=== PATIENT | female | born 1935 | race Caucasian/White ===

== ENCOUNTER 2016-09-13 18:03 | Inpatient (IN) | payer MEDICARE, OTHER ==
[~2016-09-13] VITALS: Ht 154.9 cm; Wt 79.3 kg
[2016-09-13 18:05] VITALS: BP 141/76; PULSE 84; RESP 18; O2SAT 88; O2SAT 89
[2016-09-13 19:00] VITALS: BP_SYST 167; BP_SYST 59; BP_DIAS 59; PULSE 75; RESP 17; O2SAT 99
[2016-09-13 19:23] LABS: BASOPHILS % (AUTO) 0.1 % (0-3); EOSINOPHILS % (AUTO) 0 % (0-5); MONOCYTES % (AUTO) 12.6 % (4-12); Mean Corpuscular Hemoglobin 28.8 pg (27.0-35.0); Mean Corpuscular Volume 90.8 fL (81-100); Platelet Count 431 bil/L (150-400)
[2016-09-13] MEDS ORDERED: cefTRIAXone Inj 2,000 MG in Dextrose 5% Minibag Plus 50 ML IV ONE (19:50)
--- NOTE | 2016-09-13 19:56 | ED.REPORT ---
HPI-Dyspnea / Wheezing Date of Service September 13, 2016 ED Provider: Artie Romeo DO 81 y/o female with a no reported hx presents to the ED complaining of non- productive cough, onset 2 days ago that worsened today. The pt is a [place] resident who is visiting her daughter. She also reports gradual increase in dyspnea. She denies fever and chest pain. Nursing Notes Stated Complaint: COUGH,CONGESTION Chief Complaint: Respiratory Complaints Nursing Notes Reviewed: Yes Allergies: Coded Allergies: Eucalyptus Tree (Verified Allergy, Unknown, Shortness of Breath, 09/13/16) alendronate sodium (Verified Allergy, Unknown, Bone pain, 09/13/16) Scheduled Atenolol (Atenolol) 25 Mg Tablet 25 MG PO DAILY Cyanocobalamin (Vitamin B12) 500 Mcg Tablet 500 MCG PO DAILY Ferrous Gluconate (Ferrous Gluconate) 240 Mg Tablet 240 MG PO HS Hydralazine (Hydralazine) 50 Mg Tablet 50 MG PO BID Levothyroxine (Levothyroxine) 100 Mcg Tablet 100 MCG PO DAILY Lisinopril (Lisinopril) 40 Mg Tablet 40 MG PO DAILY Lovastatin (Lovastatin) 40 Mg Tablet 80 MG PO Evening with meal Multivits-Min/FA/Lycopene/Lut (Centrum Silver Tablet) 1 Each Tablet 1 EACH PO DAILY Oxybutynin Chloride (Oxybutynin Chloride) 5 Mg Tablet 5 MG PO 1-2x daily General Time Seen by MD: 18:49 Chief Complaint Cough Hx Obtained From: Patient Arrived By: Walk-in Sudden in Onset?: Yes Onset Occurred: 3 days ago Symptom Duration: Since onset Severity: Current: No pain currently Severity: Maximum: No pain Recent Healthcare: No recent doctor visit Similar Sx Previous: No Past Medical History Past Medical History none reported Past Surgical History none reported Smoking History Unknown if Ever Smoker Social History Other Social History: Good social support Ambulatory Status Independent Review of Systems Constitutional: Denies: Fever Respiratory: Reports: Non-productive cough, Shortness of breath Cardiovascular: Denies: Chest pain Complete sys rev & neg: except as marked. Physical Exam Initial Vital Signs Vital Signs (First) Date Time Temp Pulse Resp B/P Pulse Ox O2 Delivery O2 Flow Rate FiO2 09/13/16 18:05 36.6 84 18 141/76 88 Room Air 09/13/16 19:00 2 Initial VS: Reviewed ENT: Mucous membranes moist, Conjunctiva normal, No scleral icterus Abdomen / GI: Soft, Non-tender Extremities: Vascular intact, Neuro intact, No swelling, No tenderness Skin: Warm, Dry, No cyanosis Neurologic: Alert, Oriented, Nonfocal General/Constitutional: Awake, Alert, Cooperative Neck: No JVD Respiratory / Chest: Atraumatic, Breath sounds = bilat, No chest tenderness, No chest wall deformity Crackles heard bilaterally, more in left lobe. Pursed lip breathing. Cardiovascular: Heart rate NL, Regular rhythm, Heart sounds NL, No gallop, No murmurs, No rubs No edema Head / Eyes: Atraumatic, Normocephalic Interpretation & Diagnostics Lab Results Interpretation Result Diagram: 09/13/16190409/13/161904 Test 09/13/16 19:05 White Blood Count 13.2th/mm3 (3.8-10.1) Red Blood Count 4.44mil/mm3 (3.90-5.20) Hemoglobin 12.8g/dL (12.0-15.6) Hematocrit 40.3% (35.0-46.0) Mean Corpuscular Volume 90.8fL (81-100) Mean Corpuscular Hemoglobin 28.8pg (27.0-35.0) Mean Corpuscular Hemoglobin Concent 31.8% (32.0-37.0) Red Cell Distribution Width 13.3% (12.3-15.4) Platelet Count 431bil/L (150-400) Neutrophils (%) (Auto) 80.0% (40-74) Lymphocytes (%) (Auto) 7.0% (14-46) Monocytes (%) (Auto) 12.6% (4-12) Eosinophils (%) (Auto) 0% (0-5) Basophils (%) (Auto) 0.1% (0-3) D-Dimer 1.54mg/L FEU (<0.50) Sodium Level 127mEq/L (134-144) Potassium Level 4.0mEq/L (3.5-5.2) Chloride Level 84mEq/L (97-108) Carbon Dioxide Level 31mmol/L (18-29) Blood Urea Nitrogen 17mg/dL (8-27) Creatinine 0.61mg/dL (0.57-1.00) Estimat Glomerular Filtration Rate 135mL/min (>59) Glucose Level 164mg/dL (60-99) Lactic Acid Level 1.2mmol/L (0.4-2.0) Calcium Level 9.2mg/dL (8.5-10.1) Total Bilirubin 0.4mg/dL (0.0-1.2) Aspartate Amino Transf (AST/SGOT) 16U/L (0-50) Alanine Aminotransferase (ALT/SGPT) 10U/L (0-32) Alkaline Phosphatase 62U/L (25-165) Troponin T < 0.010ug/L (0.0-0.011) Pro-B-Type Natriuretic Peptide 303.7pg/mL (0-738) Total Protein 7.6g/dL (6.4-8.4) Albumin 3.2g/dL (3.4-5.0) Procalcitonin 0.10ng/mL (0.00-0.08) Hold Aguila Top Tube Received (Received) ECG Interpretation 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 Superimposed infection particularly in the left lower lobe cannot be excluded. Recommend a followup chest radiograph in 4-6 weeks to verify resolution. Dictated by: Yoseph Cochran M.D. on 09/13/2016 at 20:06 Approved by: Yoseph Cochran M.D. on 09/13/2016 at 20:07 View: Portable, AP & lat Interpretation / Wet Read by: Interpret - Radiologist CT Chest Interpretation IMPRESSION: 1. No acute pulmonary emboli. 2. Infectious appearing pulmonary opacities bilaterally greatest in the left lower lobe. Likely reactive mediastinal lymphadenopathy and pleural effusions left greater than right. Recommend radiographic and clinical follow up to resolution. If findings not resolve, a PET CT may be needed. Dictated by: Yoseph Cochran M.D. on 09/13/2016 at 20:57 Approved by: Yoseph Cochran M.D. on 09/13/2016 at 21:07 Study type: CT pulm angiogram Interpretation / Wet Read by: Interpret - Radiologist Re-Eval/Medical Decision Med Decision/Clinical Course 81 -year-old female presents to the emergency department acutely ill. She has had cough and shortness of breath since she flew from [place]. She was found to be hypoxic and have impressive adventitious breath sounds. Chest x- ray showed a pleural effusion and possible pneumonia as well as evidence of heart failure. Her beta natruretic peptide however was normal. Her d-dimer was quite elevated so therefore a CT angiogram to rule out PE was performed. Pulmonary embolism was ruled out and a pneumonia with an effusion was identified. She meets criteria for community-acquired pneumonia. She will be treated with Rocephin and Zithromax. Plan for hospital admission. She was admitted in stable condition. Re-Evaluation/Progress : Time of Eval: 19:00 Re-Evaluation/Progress Note: Rechecked pt. Discussed lab results and plan to admit. Pt understands and agrees with the plan for admission. All questions addressed. Consultation : Referral / Consult Name: Jeronimo Hankins MD Call Returned at: 21:16 Legal Librarian: Will see patient, Agrees with eval, Agrees with plan, Accepts admit Counseled Regarding: Diagnosis, Lab results, Need for admission Discharge & Departure Impression: Primary Impression: Pneumonia Pneumonia type: due to unspecified organism Laterality: left Lung location : lower lobe of lung Qualified Code: J18.1 - Lobar pneumonia, unspecified organism Additional Impression: Parapneumonic effusion Disposition: ADMITTED TO HOSPITAL Discharge Condition All VS Reviewed: Yes Scribe Attestation Portions of this note were transcribed by Sergio Jade. I, , personally performed the history, physical exam and medical decision-making;I reviewed and confirmed the accuracy of the information in the transcribed note. Signed by Amita Grey. 09/13/16 2157 Artie Romeo DO September 13, 2016 19:56 Sergio Jade September 13, 2016 20:00
[2016-09-13 20:00] LABS: TROPONIN T < 0.010 ug/L (0.0-0.011)
[2016-09-13] MEDS ORDERED: Albuterol-Ipratropium 3 mL Inhalation Solution NEB ONE (20:00)
--- NOTE | 2016-09-13 20:14 | DRSVH ---
PROCEDURE: X-RAY CHEST, TWO VIEWS ([id number]) INDICATIONS: dyspnea TECHNIQUE: 2 views of the chest were acquired. COMPARISON: None. FINDINGS: Surgical changes and devices: None. Lungs and pleura: The small pleural effusions with bibasilar atelectasis or infiltrates. Interstitial pulmonary opacities most consistent with fluid imbalance. Hyperinflation consistent with COPD.. Mediastinum: Mediastinal contours are normal. Heart size is normal. Vascular calcifications. Bones and chest wall: No suspicious bony abnormalities. Soft tissues appear unremarkable. IMPRESSION: Pleural effusions with pulmonary congestion. Superimposed infection particularly in the l eft lower lobe cannot be excluded. Recommend a followup chest radiograph in 4-6 weeks to verify resol ution. Dictated by: Yoseph Cochran M.D. on 09/13/2016 at 20:06 Approved by: Yoseph Cochrna M.D. on 09/13/2016 at 20:07
[2016-09-13 20:22] VITALS: PULSE 72; RESP 20; O2SAT 98
[2016-09-13 21:12] VITALS: BP 137/74; PULSE 83; RESP 18; O2SAT 100
--- NOTE | 2016-09-13 21:14 | DRSVH ---
PROCEDURE: CT ANGIO CHEST PULMONARY EMBOLISM ([id number]) INDICATIONS: pleural effusion, dyspnea,hx of clot TECHNIQUE: After the administration of intravenous contrast, 2 mm thick sections acquired from the pulmonary api melvin to the posterior costophrenic angles. 3-dimensional maximum intensity projection (MIP) coronal a nd sagittal reformats were then acquired through the thorax. For radiation dose reduction, the follo wing was used: automated exposure control, adjustment of mA and/or kV according to patient size. COMPARISON: None. FINDINGS: Image quality: Excellent. Pulmonary arteries: Pulmonary arteries are normal in size, and demonstrate no intraluminal filling d efects to suggest central pulmonary embolism. Lungs and pleura: Small pleural effusions left greater than right to small for percutaneous sampling. Bilateral infectious pulmonary opacities greatest in the left lower lobe. Mediastinum: Moderate pericardial effusion measuring up to 1.4 CM in diameter. Mediastinal lymphadeno paty with largest subcarinal lymph node measuring 2.5 x 1.5 CM.. Bones and chest wall: No suspicious bony lesions. Ribs and thoracic spine appear intact throughout. Thyroid gland is grossly normal.. No axillary or supraclavicular adenopathy. Abdomen: Visualized upper abdominal solid organs appear normal in the early arterial phase of enhanc ement. IMPRESSION: 1. No acute pulmonary emboli. 2. Infectious appearing pulmonary opacities bilaterally greatest in the left lower lobe. Likely react maria guadalupe mediastinal lymphadenopathy and pleural effusions left greater than right. Recommend radiographic and clinical follow up to resolution. If findings not resolve, a PET CT may be needed. Dictated by: Yoseph Cochran M.D. on 09/13/2016 at 20:57 Approved by: Yoseph Cochran M.D. on 09/13/2016 at 21:07
[2016-09-13] MEDS ORDERED: Alum-Mag Hydrox-Simeth 30 mL Suspension PO PRN (21:30)
[2016-09-13] MEDS ORDERED: Polyethylene Glycol (PEG) 17 Gm Powder PO PRN (21:30)
--- NOTE | 2016-09-13 21:45 | PCM.HPMED ---
Subjective Date of Service September 13, 2016 Primary Provider: Admitting Physician: Primary Care Physician: Other,Physician Attending Physician: Admit Status: From the Emergency Department, Remote Telemetry Chief Complaint: Cough and congestion History of Present Illness: Patient is a 81 y/o female with asthma, hypertension and hyperlipidemia seen by urgent care transferred to the ED complaining of worsening non-productive cough , onset 9 days ago. Associated symptoms include cough, dyspnea, headache, nasal congestion and wheezing. Patient states she has not had any appetite for the last week. She denies fever, chest pain, otalgia or sore throat. Patient reports of having pneumonia in May and had lesion on left lung. Patient denies history of dysuria, allergies, sick contacts or exposure to smoke. Patient is currently visiting her daughter from [place]. Denies any recent hospitalizations, or antibiotics use. Patient is not on oxygen at baseline. In the ED vitals T 36.6, P 84, RR 18, BP 141/76, oxygen 88% on RA. Labs significant for WBC 13.2, sodium 127, chloride 84, bicarbonate 31, glucose 164. Pro-calcitonin 0.10. D-dimer is 1.54. Lactic acid 1.2. Troponin negative, BNP in a 303.7. CXR showed "Pleural effusions with pulmonary congestion. Superimposed infection particularly in the left lower lobe cannot be excluded." CTA negative for PE, confirming CXR findings. Review of Systems: A comprehensive review of systems has been conducted with the patient and found to be negative except what is mentioned in the HPI. Allergies Coded Allergies: Eucalyptus Tree (Verified Allergy, Unknown, Shortness of Breath, 09/13/16) alendronate sodium (Verified Allergy, Unknown, Bone pain, 09/13/16) Home Medications Atenolol 25 mg by mouth daily Hydralazine 50 mg by mouth daily Oxybutynin 5 mg by mouth 1-2 tablets a day Levothyroxine 75 g by mouth daily Lisinopril 40 mg by mouth daily Lovastatin 80 mg by mouth daily at bedtime Centrum Silver one a day Vitamin B12 500 g 1 a day ferrous gluconate 240 mg 1 at night PMH Hypertension Hyperlipidemia Urinary incontinence hypothyroidism Surgical History Denies Family History Mother of natural causes in her late 80s. Does not know any health history is regarding her father. Social History Hx Alcohol Use: No Hx Substance Use: No Hx Tobacco Use: Yes Smoking Status: Former Smoker (quit 40 years ago, 25 pack years) Exam Vital Signs Vital Sign - Last Date Time Temp Pulse Resp B/P Pulse Ox O2 Delivery O2 Flow Rate FiO2 09/13/16 21:12 83 18 137/74 100 Nasal Cannula 2 09/13/16 18:05 36.6 Exam General: Alert, Oriented X3, Cooperative, in mild respiratory distress, breathing with pursed lips HEENT: PERRLA, EOMI, No scleral icterus, Conjunctiva normal, Mucous Membrane dry Neck: Supple, no JVD Chest & Lungs: Coarse breath sounds L>R, with expiratory wheezes. Mild respiratory distress Cardiovascular: Regular rate and rhythm Abdomen: Non-tender, Non-distended Extremities: No cyanosis/clubbing bilat, 2+ pitting edema extending up to lower abdomen Skin: Warm, Dry, No cyanosis, poor skin turgor Neurological: no focal deficits Psychiatric: Mood/affect normal, Behavior normal, Normal thought content Lab and Diagnostics Result Diagram: 09/13/16190409/13/161904 X-Rays, CTs and MRIs Date of Service: 09/13/16 1832 PROCEDURE: X-RAY CHEST, TWO VIEWS ([id number]) INDICATIONS: dyspnea IMPRESSION: Pleural effusions with pulmonary congestion. Superimposed infection particularly in the left lower lobe cannot be excluded. Recommend a followup chest radiograph in 4-6 weeks to verify resolution. Dictated by: Yoseph Cochran M.D. on 09/13/2016 at 20:06 Approved by: Yosehp Cochran M.D. on 09/13/2016 at 20:07 Date of Service: 09/13/162034 PROCEDURE: CT ANGIO CHEST PULMONARY EMBOLISM ([id number]) INDICATIONS: pleural effusion, dyspnea,hx of clot IMPRESSION: 1. No acute pulmonary emboli. 2. Infectious appearing pulmonary opacities bilaterally greatest in the left lower lobe. Likely reactive mediastinal lymphadenopathy and pleural effusions left greater than right. Recommend radiographic and clinical follow up to resolution. If findings not resolve, a PET CT may be needed. Dictated by: Yoseph Cochran M.D. on 09/13/2016 at 20:57 Approved by: Yoseph Cochran M.D. on 09/13/2016 at 21:07 Assessment & Plan Patient is a 81 y/o female with asthma, hypertension and hyperlipidemia seen by transferred to the ED complaining of worsening non-productive cough, onset 9 days ago. Associated symptoms include cough, dyspnea, headache, nasal congestion and wheezing. CXR and CT confirms pneumonia. Patient admitted for further treatment and management. Hypoxic respiratory Failure due to pneumonia, present on admission. Acute. - keep oxygen saturations above 92% - Oxygen as needed Community-acquired pneumonia, present on admission. Acute. - CXR showed "Pleural effusions with pulmonary congestion. Superimposed infection particularly in the left lower lobe cannot be excluded." CTA negative for PE, confirming CXR findings. - CURB 65 of 1 - Procal mildly elevated at 0.10, with leukocytosis - Started on ceftriaxone and ED, will continue and add azithromycin - Urine Legionella and strep, PCR viral panel pending - Sputum cultures, UCx, BCx pending Hyponatremia, present on admission. Acute. - most likely due to poor oral intake for the past week, cannot rule out SIADH from pneumonia - IVF - patient to be on general diet to promote oral intake - Recheck labs Chronic conditions; Hypertension - continue home meds atenolol. Lisinopril, hydralazine Hypothyroidism - continue home med levothyroxine Hyperlipidemia - continue home med lovastatin Urinary incontinence - continue oxybutynin Acetaminophen-fever/headache/mild/moderate pain Antiemetics, as needed Bowel regimen, as needed. Patient status: Patient was admitted under inpatient status with expected length of stay greater than two midnights due to severity of presenting symptoms , risk of adverse event, and complexity of treatment plan. Pain Evaluation: Adequate Pain Control GI Prophylaxis: Not indicated VTE Prophylaxis: Sub-Q Enoxaparin Resuscitation Status: CPR: Attempt Resuscitation Attending Statement The patient was seen and examined together with Dr. Kasper on 09/13 and I agree with the history, exam and plan as outlined in the note above. Devon Kasper DO September 13, 2016 21:45 Jeronimo Hankins MD September 14, 2016 01:06
[2016-09-13 22:18] LABS: APPEARANCE,URINE CLEAR (CLEAR,HAZY); COLOR,URINE YELLOW (YELLOW); OCCULT BLOOD,URINE NEGATIVE (NEGATIVE); UROBILINOGEN,URINE NORMAL (NORMAL)
[2016-09-13 22:45] VITALS: BP 178/91; PULSE 86; RESP 20; O2SAT 95
[2016-09-13] MEDS ORDERED: HYDR-3940 PO (22:45)
[2016-09-13] MEDS ORDERED: FERR240T5 PO (22:45)
[2016-09-13] MEDS ORDERED: ATEN25TA PO (22:45)
[2016-09-13] MEDS ORDERED: CYAN500 PO (22:45)
[2016-09-13] MEDS ORDERED: LOVA40TA PO (22:45)
[2016-09-13] MEDS ORDERED: LISI40TA PO (22:45)
[2016-09-13] MEDS ORDERED: LEVO100T6 PO (22:45)
[2016-09-13] MEDS ORDERED: OXYB5TAB10 PO (22:45)
[2016-09-13] MEDS ORDERED: MULT-1073 PO (22:45)
[2016-09-13] MEDS: Azithromycin Inj 500 MG in Dextrose 5% w/Vial Mate 250 ML IV SCH (22:55)
[2016-09-13] MEDS: 0.9% Sodium Chloride 1,000 ML IV SCH (22:55)
[2016-09-13 23:14] VITALS: PULSE 84
[2016-09-13] MEDS ORDERED: LEVO75TA4 PO (23:32)
[2016-09-14] VITALS (7 sets, daily range): BP systolic 126–163; BP diastolic 67–82; PULSE 66–83; RESP 15–20; O2SAT 93–98
--- NOTE | 2016-09-14 00:40 | NUR ---
ADMIT/ARRIVAL TO FLOOR Pt arrived to [facility] 3006 approx 2230. Noc resident in to see pt upon arrival to room. Pt able to ambulate from stretcher to bed, slow, slightly unsteady, generalized weakness. VS obtained. Pt on 2L, placed on CPOx. Pt placed on remote telemetry, phototypesetting equipment monitor notified. Pt placed on droplet precautions per MD orders. Nasal MRSA screen swab, Eye drainage swab, and Viral PCR swab obtained and sent to lab. IV patent, flushed, IVF and IV abx administered. Pt denies any pain. Continue to monitor. Call light in reach. Bed alarm on. Intentional rounding.
[2016-09-14] MEDS ORDERED: Ondansetron 2 mg/mL 2 mL Inj IVPUSH PRN (01:25)
--- NOTE | 2016-09-14 04:18 | NUR ---
PT ACTIVITY/OXYGEN NEEDS Pt has mostly remained in bed. Pt did get up to use BSC. Pt visibly dyspneic, oxygen saturations high 70s to low 80s w/ activity. Pt has remained on 2L. Pt able to recover, oxygen saturations back to low to mid 90s on 2L after a few minutes of being back in bed. Call light in reach. Bed alarm on. Intentional rounding.
[2016-09-14 05:50] LABS: BASOPHILS % (AUTO) 0.1 % (0-3); EOSINOPHILS % (AUTO) 0 % (0-5); MONOCYTES % (AUTO) 12.1 % (4-12); Mean Corpuscular Hemoglobin 29.5 pg (27.0-35.0); Mean Corpuscular Volume 91.2 fL (81-100); NEUTROPHILS % (AUTO) 80.4 % (40-74); Platelet Count 419 bil/L (150-400)
[2016-09-14] MEDS: Lisinopril 40 Tablet PO SCH (08:39)
[2016-09-14] MEDS: guaiFENesin 600 mg ER12 Tablet PO SCH ×2 (08:39→20:36)
[2016-09-14] MEDS: 0.9% Sodium Chloride 1,000 ML IV SCH ×3 (08:45→17:48)
[2016-09-14] MEDS ORDERED: Albuterol 2.5 mg/3 mL Inhalation Solution NEB PRN (11:25)
--- NOTE | 2016-09-14 15:40 | PCM.PNMED ---
Subjective Date of Service September 14, 2016 Subjective Denies any new issues/complaints. Continues to have cough and SOB Exam Vital Signs Vital Sign - Last Date Time Temp Pulse Resp B/P Pulse Ox O2 Delivery O2 Flow Rate FiO2 09/14/16 15:13 Supplement Oxygen 09/14/16 13:11 36.8 67 20 126/73 93 2.00 Intake and Output 09/13/16 09/13/16 09/14/16 Cumulative From/Thru 15:00 23:00 07:00 09/13/16 18:05 - 09/14/16 06:37 Intake Total 1083 ml 1083 ml Output Total 260 ml 260 ml Balance 823 ml 823 ml Intake Oral 350 ml 350 ml IV Total 733 ml 733 ml Output Urine Total 260 ml 260 ml General: Alert, Cooperative, No Acute Distress Head: Normal Eyes: Scleral Anicteric Nose: Mucous Membr Moist/[employer] Mouth: Mucous Membr Moist/[employer] Neck: Supple Chest & Lungs: Chest Wall Normal, Coarse breath sounds (upper resp. bilat) Cardiovascular: Regular Rate/Rhythm Abdomen: Non-tender, Non-distended, Normoactive bowel tones, Soft Extremities: No cyanosis/clubbing/edma bilat Neurological: Grossly Neurologically Intact, Normal Speech IVs and Medications Medications Reviewed: Medications were reviewed in detail Lab and Diagnostics Result Diagram: 09/14/1651909/14/16519 X-Rays, CTs and MRIs Date of Service: 09/13/16 183 PROCEDURE: X-RAY CHEST, TWO VIEWS ([id number]) INDICATIONS: dyspnea IMPRESSION: Pleural effusions with pulmonary congestion. Superimposed infection particularly in the left lower lobe cannot be excluded. Recommend a followup chest radiograph in 4-6 weeks to verify resolution. Dictated by: Yoseph Cochran M.D. on 09/13/2016 at 20:06 Approved by: Yoseph Cochran M.D. on 09/13/2016 at 20:07 Date of Service: 09/13/162034 PROCEDURE: CT ANGIO CHEST PULMONARY EMBOLISM ([id number]) INDICATIONS: pleural effusion, dyspnea,hx of clot IMPRESSION: 1. No acute pulmonary emboli. 2. Infectious appearing pulmonary opacities bilaterally greatest in the left lower lobe. Likely reactive mediastinal lymphadenopathy and pleural effusions left greater than right. Recommend radiographic and clinical follow up to resolution. If findings not resolve, a PET CT may be needed. Dictated by: Yoseph Cochran M.D. on 09/13/2016 at 20:57 Approved by: Yoseph Cochran M.D. on 09/13/2016 at 21:07 Assessment & Plan 81 y/o female with asthma, hypertension and hyperlipidemia seen by transferred to the ED complaining of worsening non-productive cough, onset 9 days ago. Associated symptoms include cough, dyspnea, headache, nasal congestion and wheezing. CXR and CT confirms pneumonia. Patient admitted for further treatment and management. # Acute hypoxic respiratory Failure due to pneumonia, present on admission. - keep oxygen saturations above 92% - Oxygen as needed # Acute community-acquired pneumonia, present on admission. ongoing - CXR showed "Pleural effusions with pulmonary congestion. Superimposed infection particularly in the left lower lobe cannot be excluded." CTA negative for PE, confirming CXR findings. - Procal mildly elevated at 0.10, with leukocytosis - Continue with Ceftriaxone and Azithromycin - Urine Legionella and strep, PCR viral negative - Sputum cultures, UCx, BCx pending # Acute Hyponatremia, present on admission. Improving - Most likely due to poor oral intake for the past week - IVF - Followup repeat labs # Chronic Hypertension. stable - continue home meds atenolol. Lisinopril, hydralazine # Hypothyroidism - continue home med levothyroxine # Hyperlipidemia - continue home med lovastatin # Urinary incontinence - continue oxybutynin # CTA on 09/13: " mediastinal lymphadenopathy and pleural effusions left greater than right. Recommend radiographic and clinical follow up to resolution. If findings not resolve, a PET CT may be needed" Dispo: 1-2 days GI Prophylaxis: Not indicated VTE Prophylaxis: Sub-Q Enoxaparin Resuscitation Status: CPR: Attempt Resuscitation Mitchlel Mueller September 14, 2016 15:40
--- NOTE | 2016-09-14 16:03 | NUR ---
BG/Activity pt's BG at lunch was 186. No orders for insulin at this time. MD made aware, pt now on low dose insulin scale. Pt able to transfer from bed to BSC with SBA. Steady gait. stating just slightly SOB, SpO2 low to mid 90s on 2L NC. Reminded pt to use call light before getting out of bed. Pt verbalized understanding. Daughter in room helping with care. Ongoing care.
[2016-09-14] MEDS ORDERED: Insulin Human REGular 300 Unit/3 mL Inj SUBQ SCH (17:00)
[2016-09-14] MEDS: Insulin LISPRO Low-Dose Scale SUBQ SCH ×2 (17:40→21:59)
[2016-09-14] MEDS: cefTRIAXone Inj 2,000 MG in Dextrose 5% Minibag Plus 50 ML IV SCH (20:33)
[2016-09-14] MEDS: Azithromycin Inj 500 MG in Dextrose 5% w/Vial Mate 250 ML IV SCH (22:17)
[2016-09-15] VITALS (7 sets, daily range): BP systolic 123–157; BP diastolic 68–81; PULSE 65–82; RESP 13–18; O2SAT 93–98
[2016-09-15] MEDS: 0.9% Sodium Chloride 1,000 ML IV SCH ×2 (02:21→18:35)
[2016-09-15 06:22] LABS: BASOPHILS % (AUTO) 0.1 % (0-3); EOSINOPHILS % (AUTO) 0.1 % (0-5); MONOCYTES % (AUTO) 13.7 % (4-12); Mean Corpuscular Hemoglobin 29.1 pg (27.0-35.0); Mean Corpuscular Volume 88.2 fL (81-100); NEUTROPHILS % (AUTO) 74.7 % (40-74); Platelet Count 432 bil/L (150-400)
[2016-09-15] MEDS: Insulin LISPRO Low-Dose Scale SUBQ SCH ×4 (08:00→23:16)
[2016-09-15] MEDS: guaiFENesin 600 mg ER12 Tablet PO SCH ×2 (08:47→20:39)
[2016-09-15] MEDS: Lisinopril 40 Tablet PO SCH (08:47)
--- NOTE | 2016-09-15 14:10 | NUR ---
Social Work: Initial Assessment Data: Pt is an 81 y/o female admitted for pneumonia with effusion and hypoxia. Pt's PCP is not listed, pt's insurance is [employer]. EMR reviewed. Readmit score is 2, low. SOFTWARE SYSTEMS ENGINEER met with pt and daughter at bedside, role explained. Pt states that she lives in [place] with her son but is currently visiting her daughter her in [facility]. Pt states her home is single story, she occasionally uses a FWW. Pt states she drives, has no hx of HH or SNF, no LTC or VA benefits. Pt reports she has not been up much during her stay and states she feels very weak. SOFTWARE SYSTEMS ENGINEER spoke with pt's RN who confirms pt has not been up. SOFTWARE SYSTEMS ENGINEER relayed this message to MD who states he will order PT to meet with pt. SOFTWARE SYSTEMS ENGINEER will continue to follow for possible d/c needs. Assessment: Pt who is independent at baseline. Plan: Pt will d/c home via POV with daughter when medically stable. PT to evaluate pt, per MD conversation. SOFTWARE SYSTEMS ENGINEER will follow up post PT evaluation to cony d/c plan with MD and pt. KAREN Rodrigues Addendum: 09/15/16 at 1414 by FABIOLA HOUSE Amended: Links added.
--- NOTE | 2016-09-15 14:26 | PCM.PNMED ---
Subjective Date of Service September 15, 2016 Subjective Denies any new issues/complaints. Continues to have cough and SOB but says feels better than yesterday. Exam Vital Signs Vital Sign - Last Date Time Temp Pulse Resp B/P Pulse Ox O2 Delivery O2 Flow Rate FiO2 09/15/16 12:47 36.8 65 16 137/77 98 Nasal Cannula 3.00 Intake and Output 09/14/16 09/14/16 09/15/16 Cumulative From/Thru 15:00 23:00 07:00 09/13/16 18:05 - 09/15/16 06:11 Intake Total 910 ml 1362 ml 3355 ml Output Total 200 ml 550 ml 1010 ml Balance 710 ml 812 ml 2345 ml Intake Oral 200 ml 200 ml 750 ml IV Total 710 ml 1162 ml 2605 ml Output Urine Total 200 ml 550 ml 1010 ml # Voids 3 3 6 # Bowel Movements 1 1 Exam General: Alert, Cooperative, No Acute Distress Head: Normal Eyes: Scleral Anicteric Nose: Mucous Membr Moist/Bent Mouth: Mucous Membr Moist/Bent Neck: Supple Chest & Lungs: Chest Wall Normal, Coarse breath sounds (mild, upper resp. bilat ) Cardiovascular: Regular Rate/Rhythm Abdomen: Non-tender, Non-distended, Normoactive bowel tones, Soft Extremities: No cyanosis/clubbing/edema bilat Neurological: Grossly Neurologically Intact, Normal Speech IVs and Medications Medications Reviewed: Medications were reviewed in detail Lab and Diagnostics Result Diagram: 09/15/1645 09/15/1645 X-Rays, CTs and MRIs Date of Service: 09/13/16 183 PROCEDURE: X-RAY CHEST, TWO VIEWS ([id number]) INDICATIONS: dyspnea IMPRESSION: Pleural effusions with pulmonary congestion. Superimposed infection particularly in the left lower lobe cannot be excluded. Recommend a followup chest radiograph in 4-6 weeks to verify resolution. Dictated by: Yoseph Cochran M.D. on 09/13/2016 at 20:06 Approved by: Yoseph Cochran M.D. on 09/13/2016 at 20:07 Date of Service: 09/13/162034 PROCEDURE: CT ANGIO CHEST PULMONARY EMBOLISM ([id number]) INDICATIONS: pleural effusion, dyspnea,hx of clot IMPRESSION: 1. No acute pulmonary emboli. 2. Infectious appearing pulmonary opacities bilaterally greatest in the left lower lobe. Likely reactive mediastinal lymphadenopathy and pleural effusions left greater than right. Recommend radiographic and clinical follow up to resolution. If findings not resolve, a PET CT may be needed. Dictated by: Yoseph Cochran M.D. on 09/13/2016 at 20:57 Approved by: Yoseph Cochran M.D. on 09/13/2016 at 21:07 Assessment & Plan 81 y/o female with asthma, hypertension and hyperlipidemia seen by transferred to the ED complaining of worsening non-productive cough, onset 9 days ago. Associated symptoms include cough, dyspnea, headache, nasal congestion and wheezing. CXR and CT confirms pneumonia. Patient admitted for further treatment and management. # Acute hypoxic respiratory failure suspected due to pneumonia, present on admission. - keep oxygen saturations above 92% - Oxygen as needed # Acute community-acquired pneumonia, present on admission. ongoing - CXR showed "Pleural effusions with pulmonary congestion. Superimposed infection particularly in the left lower lobe cannot be excluded." CTA negative for PE, confirming CXR findings. - Procal mildly elevated at 0.10, with leukocytosis - Continue with Ceftriaxone and Azithromycin - Urine Legionella and strep, PCR viral negative - Sputum cultures, UCx, BCx pending - Pulmonology consulted today for further recs. Reviewed CXR and CT with pulmonology. Will followup with further recs. # Acute Hyponatremia, present on admission. Improving - Suspected likely due to poor oral intake for the past week although SIADH also possible - Continue with IVF for now - Followup repeat labs # Chronic Hypertension. stable - continue home meds atenolol. Lisinopril, hydralazine # Hypothyroidism - continue home med levothyroxine # Hyperlipidemia - continue home med lovastatin # Urinary incontinence - continue oxybutynin # CTA on 09/13: " mediastinal lymphadenopathy and pleural effusions left greater than right. Recommend radiographic and clinical follow up to resolution. If findings not resolve, a PET CT may be needed" Dispo: 1-2 days GI Prophylaxis: Not indicated VTE Prophylaxis: Sub-Q Enoxaparin Resuscitation Status: CPR: Attempt Resuscitation Mitchell Mueller September 15, 2016 14:26
[2016-09-15] MEDS: MethylprednisoLONE Sodium Succinate 40 mg/mL Inj IVPUSH SCH (20:39)
[2016-09-15] MEDS: cefTRIAXone Inj 2,000 MG in Dextrose 5% Minibag Plus 50 ML IV SCH (20:40)
[2016-09-15] MEDS: Albuterol 2.5 mg/3 mL Inhalation Solution NEB SCH (20:53)
--- NOTE | 2016-09-15 22:05 | CONS ---
[address] [address] CONSULTATION REPORT PATIENT: TORSTEN PEREZ : 1935 MR#: [id number] ADMIT: 09/13/2016 JOB ID: [id number] PULMONARY AND CRITICAL CARE CONSULTATION: DATE OF SERVICE: 09/15/2016 REQUESTING CLINICIAN: Hospitalist Service. REASON FOR CONSULTATION: Hypoxemia and abnormal chest imaging. HISTORY OF ILLNESS: The patient is a very delightful 81-year-old former smoker with a history of multiple episodes of "pneumonia" occurring over the preceding four years. She is in our area visiting her adult daughter. She arrived one week ago with a cough and dyspnea and was brought to the hospital yesterday and was admitted by the hospitalist service when she was found to be hypoxemic on room air. Chest imaging revealed patchy infiltrates in both lungs and she was treated for presumed community-acquired pneumonia. Since admission, her history of multiple previous episodes has been uncovered and other laboratory studies, including procalcitonin level, have returned and are not consistent with an acute bacterial infection. Pulmonary and Critical Care consultation is now requested for evaluation and management. She is a former smoker with a 20-pack year history, quitting 40 years ago. 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 She continues to work five days a week, four hours each day. As part of her employment, she has regular screening for tuberculosis and does not recall ever being told that she had a positive skin test. She has no pets and has lived in the same home for approximately the last 15 years. Her daughter, who is in the room at the time of my visit, feels that mother has lost some unspecified amount of weight over the last year and a half. Her only travel has been to the [facility] and the [facility], although she normally lives in the [facility]. She denies any known exposures/contact to patients with tuberculosis. She denies fevers, rigors, chills or sweats. She has a cough, which appears almost certainly to be productive, although she insists that she has a phobia about expectoration and swallows all of her secretions. She denies any chest discomfort, new rash, arthralgias. She has occasional episodes of cough while eating and drinking. She has had audible wheezing off and on over the last several years. Her most recent diagnosis of pneumonia was in May of this year, when she was back home in the [place] area. She had a chest x-ray at the time which reportedly showed a pneumonia. All of the previous episodes have been treated as an outpatient with oral medications. We have none of those records currently available. PAST MEDICAL HISTORY: 1. "Asthma." 2. Hypertension. 3. Hyperlipidemia. 4. Stress incontinence. 5. Hypothyroidism. HOME MEDICATIONS: 1. Albuterol metered dose inhaler 2 puffs q.4 h. p.r.n. 2. Hydralazine 50 mg p.o. daily. 3. Oxybutynin 5 mg p.o. daily. 4. Levothyroxine 75 mcg p.o. daily. 5. Lisinopril 40 mg p.o. daily. 6. Lovastatin 80 mg p.o. at h.s. 7. Centrum Silver 1 daily. 8. Vitamin B12 500 mcg daily. 9. Ferrous gluconate 240 mg p.o. daily. DRUG ALLERGIES: Include: 1. EUCALYPTUS OIL causes bronchospasm. 2. ALENDRONATE SODIUM causes an unknown reaction. CURRENT INPATIENT MEDICATIONS: Include: 1. Azithromycin 500 mg IV daily. 2. Rocephin 2 g IV daily. 3. Atenolol 25 mg p.o. daily. 4. Atorvastatin 20 mg p.o. at h.s. 5. Enoxaparin 40 mg subcu daily. 6. Insulin lisinopril sliding scale. 7. Levothyroxine 75 mg p.o. daily. 8. Lisinopril 40 mg p.o. daily. 9. Oxybutynin 5 mg p.o. daily. 10. Hydralazine 50 mg p.o. b.i.d. As-needed medications include: 1. Zofran. 2. Polyethylene glycol powder. 3. Senokot. 4. Guaifenesin. 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 She is a former smoker. She is . She is in our area visiting her adult daughter. She denies regular use of alcohol or recreational drugs. FAMILY HISTORY: Unknown regarding her father. Mother of heart disease in her 80s. PHYSICAL EXAMINATION: This is a somewhat frail, but comfortable-appearing woman who speaks in short sentences with a harsh cough. She is wearing nasal cannula oxygen with an O2 saturation of 98% on 3 L/minute. Her blood pressure is 140/70, heart rate is 76 and regular, respirations are 17. She is and has been afebrile since admission with a current temperature of 37.0. HEENT: Head appear to be normocephalic and atraumatic. Gaze is conjugate. Conjunctivae not injected. Pupils are equal and round. Sclerae anicteric. Visible oral mucosa is moist, without ulceration or exudate. The trachea is midline. Thyroid is nonpalpable. No lymphadenopathy in the neck or supraclavicular region. That chest shows scattered wheeze and rhonchi in all benitez, particularly over the right upper lung and left base. Cardiac exam shows a regular rhythm with normal S1 and S2. No murmur, gallop or rub is heard. Extremities are free of cyanosis, clubbing, pathologic nail change or evidence of synovitis. Skin is without any evidence of petechiae, purpura, rash or ulceration. Lower extremities show only trace bilateral edema. Abdomen is soft, nontender. Bowel tones are present. There is no organomegaly, mass or tenderness. DATABASE: Per the electronic medical record. Chest CT scan is personally reviewed. This was a CT pulmonary angiogram protocol. There is no evidence for pulmonary embolism. She has patchy airspace disease in the superior segment of the right lower lobe, the posterior segment of her left lower lobe and the basal portion of her left upper lobe. She has reactive lymphadenopathy, none greater than 1 cm, in the mediastinum and left hilum. She has bilateral pleural effusions, left slightly greater than right. CBC shows a hemoglobin of 11.6, hematocrit of 35, WBC of 11 and 432,000 platelets. Chemistry show a sodium of 128, potassium 4.4, chloride of 88, total CO2 of 30, BUN of 11, creatinine 0.4, random glucose of 128. Hemoglobin A1c is 6.4. Total calcium is 8.6. Procalcitonin level is 0.10. Respiratory viral PCR on nasopharyngeal aspirate is negative for all species. Strep pneumoniae urinary antigen is negative, along with two blood cultures drawn on September 13. IMPRESSION: Cough, hypoxemia and patchy bilateral pulmonary infiltrates. The puzzling features here are the bilateral nature of her infiltrates and her report of six previous episodes over the last four years. Infiltrates are not of a pattern that I would typically associate with aspiration and, while aspiration can explain a large number of recurrent "pneumonia" in the elderly, I do not believe that that is the case necessarily in this situation. The infiltrates certainly do appear inflammatory and I think we should consider other somewhat atypical organisms, including perhaps the rapid growing mycobacteria such as Mycobacterium avium intracellulare, given her age and gender, which places her at risk. Drug-induced lung disease is a possibility given her long use of hydralazine and its strong association with drug-induced autoantibodies. An LAZ panel should be sent for antihistone and double-stranded DNA antibodies. Neoplastic considerations in this setting include bronchoalveolar cell carcinoma and pulmonary lymphoma, although one would have to explained multiple synchronous lesions in both lungs and I think that makes neoplastic disease unlikely. Finally, some underlying immunodeficiency should be excluded. This is less common in the elderly, but in her case, I think it is worthwhile at least getting quantitative immunoglobulins and considering an HIV screen. The patient has evidence for bronchospasm on exam with widespread wheezing and carries a diagnosis of "asthma." I would treat her with routine measures for an exacerbation of chronic obstructive lung disease with scheduled bronchodilators and systemic corticosteroids, in addition to the empiric antibiotics that you have begun. RECOMMENDATIONS: 1. Expectorated sputum for AFB stain and culture. 2. Urine for Legionella antigen. 3. Continue current azithromycin and Rocephin. 4. Add methylprednisolone 40 mg IV q.8 h. 5. Scheduled inhaled bronchodilators, albuterol/ipratropium. 6. LAZ panel with reflex. 7. Attempt to obtain copies of other imaging from previous episodes back in [place]. 8. Routine PTE prophylaxis while hospitalized and immobile. Thank for requesting Pulmonary and Critical Care consultation. We will continue to follow this complex, seriously ill woman while she remains inpatient. OLEG
[2016-09-15] MEDS: Azithromycin Inj 500 MG in Dextrose 5% w/Vial Mate 250 ML IV SCH (23:17)
[2016-09-16] VITALS (11 sets, daily range): BP systolic 146–198; BP diastolic 78–90; PULSE 72–98; RESP 14–22; O2SAT 93–98
[2016-09-16] MEDS: Albuterol 2.5 mg/3 mL Inhalation Solution NEB SCH ×3 (03:15→12:58)
[2016-09-16] MEDS: MethylprednisoLONE Sodium Succinate 40 mg/mL Inj IVPUSH SCH ×2 (03:44→12:13)
--- NOTE | 2016-09-16 05:03 | NUR ---
Oxygenation/Activity pt on 2L O2 via NC with CPOX. SPO2 94-97%. report little SOB with exertion. pt up to the BSC frequently with SBA . Denies Pain/N/V. ABX administered per order. will continue to monitor.
[2016-09-16 06:12] LABS: Mean Corpuscular Hemoglobin 29.4 pg (27.0-35.0)
[2016-09-16] MEDS: Insulin LISPRO Low-Dose Scale SUBQ SCH ×4 (08:02→21:47)
[2016-09-16] MEDS: guaiFENesin 600 mg ER12 Tablet PO SCH ×2 (08:04→21:28)
[2016-09-16] MEDS: 0.9% Sodium Chloride 1,000 ML IV SCH ×2 (08:05→20:18)
[2016-09-16] MEDS: Lisinopril 40 Tablet PO SCH (09:11)
--- NOTE | 2016-09-16 11:21 | NUR ---
BP note Patient's blood pressure was 198/83 at 0830. Patient denied headache. Administered cardiac medications per order. Instructed to use call light for assistance, in case of BP drop and to report lightheadedness. Rechecked post medication, BP decreased to 160/90 at 1000.
--- NOTE | 2016-09-16 13:29 | PCM.PNMED ---
Subjective Date of Service September 16, 2016 Subjective Denies any new issues/complaints. Continues to have cough and SOB but says continues to feel better Exam Vital Signs Vital Sign - Last Date Time Temp Pulse Resp B/P Pulse Ox O2 Delivery O2 Flow Rate FiO2 09/16/16 12:58 75 96 Nasal Cannula 1.50 09/16/16 12:55 36.4 16 160/82 Intake and Output 09/15/16 09/15/16 09/16/16 Cumulative From/Thru 15:00 23:00 07:00 09/13/16 18:05 - 09/16/16 06:29 Intake Total 1367 ml 400 ml 5122 ml Output Total 1000 ml 7300 ml 9310 ml Balance 367 ml -6900 ml -4188 ml Intake Oral 686 ml 400 ml 1836 ml IV Total 681 ml 3286 ml Output Urine Total 650 ml 7300 ml 8960 ml Urine/Stool Mix 350 ml 350 ml # Voids 6 # Bowel Movements 1 2 Exam General: Alert, Cooperative, No Acute Distress Head: Normal Eyes: Scleral Anicteric Nose: Mucous Membr Moist/[place] Mouth: Mucous Membr Moist/[place] Neck: Supple Chest & Lungs: Chest Wall Normal, Coarse breath sounds (mild, upper resp. bilat ) Cardiovascular: Regular Rate/Rhythm Abdomen: Non-tender, Non-distended, Normoactive bowel tones, Soft Extremities: No cyanosis/clubbing/edema bilat Neurological: Grossly Neurologically Intact, Normal Speech IVs and Medications Medications Reviewed: Medications were reviewed in detail Lab and Diagnostics Result Diagram: 09/16/16 0600 09/16/16 06 X-Rays, CTs and MRIs Date of Service: 09/13/161831 PROCEDURE: X-RAY CHEST, TWO VIEWS ([id number]) INDICATIONS: dyspnea IMPRESSION: Pleural effusions with pulmonary congestion. Superimposed infection particularly in the left lower lobe cannot be excluded. Recommend a followup chest radiograph in 4-6 weeks to verify resolution. Dictated by: Yoseph Cochran M.D. on 09/13/2016 at 20:06 Approved by: Yoseph Cochran M.D. on 09/13/2016 at 20:07 Date of Service: 09/13/162034 PROCEDURE: CT ANGIO CHEST PULMONARY EMBOLISM ([id number]) INDICATIONS: pleural effusion, dyspnea,hx of clot IMPRESSION: 1. No acute pulmonary emboli. 2. Infectious appearing pulmonary opacities bilaterally greatest in the left lower lobe. Likely reactive mediastinal lymphadenopathy and pleural effusions left greater than right. Recommend radiographic and clinical follow up to resolution. If findings not resolve, a PET CT may be needed. Dictated by: Yoseph Cochran M.D. on 09/13/2016 at 20:57 Approved by: Yoseph Cochran M.D. on 09/13/2016 at 21:07 Assessment & Plan 81 y/o female with asthma, hypertension and hyperlipidemia seen by transferred to the ED complaining of worsening non-productive cough, onset 9 days ago. Associated symptoms include cough, dyspnea, headache, nasal congestion and wheezing. CXR and CT confirms pneumonia. Patient admitted for further treatment and management. # Acute hypoxic respiratory failure suspected due to pneumonia, present on admission. Improving - keep oxygen saturations above 92% - Oxygen as needed - Apprecaite pulmonary consult. López followup with recs. - Possible underlying COPD and possible acute exacerbation - Continue with IV Solu-Medrol per pulmonology recs - Continue wit inhalers - Followup pending serologies and cultures # Acute community-acquired pneumonia, present on admission. ongoing - CXR showed "Pleural effusions with pulmonary congestion. Superimposed infection particularly in the left lower lobe cannot be excluded." CTA negative for PE, confirming CXR findings. - Continue with Ceftriaxone and Azithromycin (day 4) - Urine Legionella and strep, PCR viral negative - Followup pending cultures # Acute Hyponatremia, present on admission. Improving - Suspected likely due to poor oral intake for the past week although SIADH also possible - Continue with IVF for now - Followup repeat labs # Chronic Hypertension. stable - continue home meds atenolol. Lisinopril, hydralazine # Hypothyroidism - continue home med levothyroxine # Hyperlipidemia - continue home med lovastatin # Urinary incontinence - continue oxybutynin # CTA on 09/13: " mediastinal lymphadenopathy and pleural effusions left greater than right. Recommend radiographic and clinical follow up to resolution. If findings not resolve, a PET CT may be needed" Dispo: 2-3 days GI Prophylaxis: Not indicated VTE Prophylaxis: Sub-Q Enoxaparin Resuscitation Status: CPR: Attempt Resuscitation Mitchell Mueller September 16, 2016 13:29
--- NOTE | 2016-09-16 14:57 | PCM.PNMED ---
Subjective Date of Service September 16, 2016 Subjective PULMONOLOGY PROGRESS NOTE: Today, the patient reports she is feeling better. She has been up with PT and spent her morning in the chair. She is tired from the activity and requests a nap. Her cough and shortness of breath are improved. She denies fever, chills , nausea, vomiting. Her appetite seems improved to her. Overnight, patient tolerated 2L via nasal cannula. Does continue to have some dyspnea on exertion. Relatively uneventful night. Exam Vital Signs Vital Sign - Last Date Time Temp Pulse Resp B/P Pulse Ox O2 Delivery O2 Flow Rate FiO2 09/16/16 10:09 89 160/90 09/16/16 08:34 36.7 18 94 Nasal Cannula 3.00 Intake and Output 09/15/16 09/15/16 09/16/16 Cumulative From/Thru 15:00 23:00 07:00 09/13/16 18:05 - 09/16/16 06:29 Intake Total 1367 ml 400 ml 5122 ml Output Total 1000 ml 7300 ml 9310 ml Balance 367 ml -6900 ml -4188 ml Intake Oral 686 ml 400 ml 1836 ml IV Total 681 ml 3286 ml Output Urine Total 650 ml 7300 ml 8960 ml Urine/Stool Mix 350 ml 350 ml # Voids 6 # Bowel Movements 1 2 Exam General: Alert, Cooperative, No Acute Distress Head: Normal, atraumatic Eyes: Scleral Anicteric, PERRLA, EOMI Mouth: Mucous Membr Moist/[place], no oral thrush observed Neck: No JVD appreciated Chest & Lungs: Relatively clear lung sounds except for mild expiratory wheezing Cardiovascular: Regular Rate/Rhythm, no murmur appreciated Abdomen: Non-tender, Non-distended, Normoactive bowel tones, Soft Extremities: Mild pitting edema in the bilateral lower extremities about [address] gandara Radial and doraslis pedis pulses present and equivalent bilaterally Neurological: Grossly Neurologically Intact, Normal Speech, able to move all extremities of her own volition No Teran catheter in place IVs and Medications Medications Reviewed: Medications were reviewed in detail Lab and Diagnostics Result Diagram: 09/16/16 0600 09/16/16 0600 Assessment & Plan 1) Acute hypoxic respiratory failure. - May have an element of underlying lung disease, such as asthma or COPD. With reports of multiple pneumonia-like illnesses over the last 4 years it is possible that this has made her more susceptible to infectious organisms. - Concern for possible drug-induced lupus as patient has history of hydralazine use. Await LAZ panel. - Continue corticosteroids. Will switch to PO prednisone tomorrow AM at 40 mg. - Continue Albuterol neb Q6. - Continue supplemental O2 as needed to maintain O2 saturation 92-96%. - Patient may require outpatient follow up with a operations specialist after she returns to her home in the [place] area. - Cannot definitively rule out malignant process underlying this all as there was mediastinal lymphadenopathy. No enlargement over 1 cm. Will need follow up CT in about 3 months. - Continue physical therapy. 2) Possible community acquired pneumonia. - Bacterial infection does seem less likely as the patient has had negative procalcitonin x2. Viral PCR is negative. Urine antigens negative. - Aspiration less likely in this patient as both she and family deny coughing/ choking with meals. Of course with her age it is still not impossible. Radiography also does not support aspiration pneumonia/pneumonitis. - Continue azithromycin and ceftriaxone (day 4 of antibiotics). Could consider stopping after a 5 day course. - Patient is at risk of other atypical infections such as LITTLE/MAC. Await expectorated sputum sample and culture results. Induce sputum sample if necessary. GI Prophylaxis: Not indicated VTE Prophylaxis: Sub-Q Enoxaparin Resuscitation Status: CPR: Attempt Resuscitation Heide Kelley DO September 16, 2016 10:27
[2016-09-16] MEDS ORDERED: [UNRECOGNIZED DRUG - OTHER] INHALATION ONE (15:40)
--- NOTE | 2016-09-16 15:51 | NUR ---
Social Work: Continued d/c planning Data: Pt is on day 3 of hospitalization. EMR reviewed.PT recommending SNF at this time. WARNING ANALYST spoke with pt regarding SNF and pt is declining at this time. Pt sates that she wants to either go home with her daughter or with her grandson at d/c. WARNING ANALYST will discuss with MD and await further order. WARNING ANALYST will continue following and will meet with pt and daughter on 09/17. Assessment: Pt who is independent at baseline. Plan: Pt is declining SNF at this time. WARNING ANALYST will discuss with MD and await further order. WARNING ANALYST will continue following and will meet with pt and daughter on 09/17. KAREN Rodrigues
--- NOTE | 2016-09-16 16:16 | NUR ---
Evaluation completed. Please go to "Notes" then click on "Assessments and Notes" (bottom left corner of screen). Then select appropriate discipline tab on top of screen.
--- NOTE | 2016-09-16 16:17 | NUR ---
AMBULATION/O2 Needs Pt reporting feeling alot better and stronger than yesterday. Pt up as SBA to BSC. Pt able to tolerate getting up. Steady on feet but still a little weak. Continuing with SBA for safety. Pt uses call light appropriately. O2 Needs Pt on 3L NC -SpO2 at 98% at beginning of shift. O2 titrated down to RA. SpO2 in mid 80s. Adjusted up to 1L NC and SpO2 stable at 90%. NEB treatments as ordered.
[2016-09-16] MEDS ORDERED: MethylprednisoLONE Sodium Succinate 40 mg/mL Inj IVPUSH SCH (19:30)
[2016-09-16] MEDS: cefTRIAXone Inj 2,000 MG in Dextrose 5% Minibag Plus 50 ML IV SCH (21:36)
[2016-09-17 05:43] VITALS: BP 168/78; PULSE 80; RESP 16; O2SAT 96
[2016-09-17] MEDS: Albuterol 2.5 mg/3 mL Inhalation Solution NEB SCH ×3 (07:16→21:59)
[2016-09-17 07:17] VITALS: PULSE 65; RESP 20; O2SAT 95
[2016-09-17] MEDS: Insulin LISPRO Low-Dose Scale SUBQ SCH ×4 (07:54→20:43)
[2016-09-17] MEDS: predniSONE 20 mg Tablet PO SCH (07:58)
[2016-09-17] MEDS: guaiFENesin 600 mg ER12 Tablet PO SCH ×2 (07:58→20:42)
[2016-09-17] MEDS: Lisinopril 40 Tablet PO SCH (08:01)
[2016-09-17] MEDS: 0.9% Sodium Chloride 1,000 ML IV SCH ×2 (08:02→18:35)
--- NOTE | 2016-09-17 12:31 | PCM.PNMED ---
Subjective Date of Service September 17, 2016 Subjective Denies any new issues/complaints. Exam Vital Signs Vital Sign - Last Date Time Temp Pulse Resp B/P Pulse Ox O2 Delivery O2 Flow Rate FiO2 09/17/16 07:30 Supplement Oxygen 09/17/16 07:17 65 20 95 1.00 09/17/16 05:43 36.2 168/78 Intake and Output 09/16/16 09/16/16 09/17/16 Cumulative From/Thru 15:00 23:00 07:00 09/13/16 18:05 - 09/17/16 06:43 Intake Total 1261 ml 3069 ml 1066 ml 05981 ml Output Total 650 ml 9960 ml Balance 1261 ml 3069 ml 416 ml 558 ml Intake Oral 2150 ml 150 ml 4136 ml IV Total 1261 ml 919 ml 916 ml 6382 ml Output Urine Total 650 ml 9610 ml Urine/Stool Mix 350 ml # Voids 3 1 10 # Bowel Movements 2 2 1 7 Exam General: Alert, Cooperative, No Acute Distress Head: Normal Eyes: Scleral Anicteric Nose: Mucous Membr Moist/[place] Mouth: Mucous Membr Moist/[place] Neck: Supple Chest & Lungs: Chest Wall Normal, Clear to auscultation bilaterally Cardiovascular: Regular Rate/Rhythm Abdomen: Non-tender, Non-distended, Normoactive bowel tones, Soft Extremities: No cyanosis/clubbing/edema bilat Neurological: Grossly Neurologically Intact, Normal Speech IVs and Medications Medications Reviewed: Medications were reviewed in detail Lab and Diagnostics Result Diagram: 09/16/16 0600 09/17/16 0542 X-Rays, CTs and MRIs Date of Service: 09/13/16 1832 PROCEDURE: X-RAY CHEST, TWO VIEWS ([id number]) INDICATIONS: dyspnea IMPRESSION: Pleural effusions with pulmonary congestion. Superimposed infection particularly in the left lower lobe cannot be excluded. Recommend a followup chest radiograph in 4-6 weeks to verify resolution. Dictated by: Yoseph Cochran M.D. on 09/13/2016 at 20:06 Approved by: Yoseph Cochran M.D. on 09/13/2016 at 20:07 Date of Service: 09/13/162034 PROCEDURE: CT ANGIO CHEST PULMONARY EMBOLISM ([id number]) INDICATIONS: pleural effusion, dyspnea,hx of clot IMPRESSION: 1. No acute pulmonary emboli. 2. Infectious appearing pulmonary opacities bilaterally greatest in the left lower lobe. Likely reactive mediastinal lymphadenopathy and pleural effusions left greater than right. Recommend radiographic and clinical follow up to resolution. If findings not resolve, a PET CT may be needed. Dictated by: Yoseph Cochran M.D. on 09/13/2016 at 20:57 Approved by: Yoseph Cochran M.D. on 09/13/2016 at 21:07 Assessment & Plan 81 y/o female with asthma, hypertension and hyperlipidemia seen by transferred to the ED complaining of worsening non-productive cough, onset 9 days ago. Associated symptoms include cough, dyspnea, headache, nasal congestion and wheezing. CXR and CT confirms pneumonia. Patient admitted for further treatment and management. # Acute hypoxic respiratory failure suspected due to pneumonia, present on admission. Improving - keep oxygen saturations above 92% - Oxygen as needed - Apprecaite pulmonary consult. [place] followup with recs. - Possible underlying COPD and possible acute exacerbation - Change of IV Solu-Medrol to PO prednisone per pulmonology recs - Continue wit inhalers - Followup pending serologies and cultures # Acute community-acquired pneumonia, present on admission. ongoing - CXR showed "Pleural effusions with pulmonary congestion. Superimposed infection particularly in the left lower lobe cannot be excluded." CTA negative for PE, confirming CXR findings. - Continue with Ceftriaxone and Azithromycin (day 5). Will consider stopping Abx after today - Urine Legionella and strep, PCR viral negative - Followup pending cultures # Acute Hyponatremia, present on admission. Resolved - Suspected likely due to poor oral intake for the past week although SIADH also possible - Continue with IVF for now - Followup repeat labs # Chronic Hypertension. stable - continue home meds atenolol. Lisinopril, hydralazine # Hypothyroidism - continue home med levothyroxine # Hyperlipidemia - continue home med lovastatin # Urinary incontinence - continue oxybutynin # CTA on 09/13: " mediastinal lymphadenopathy and pleural effusions left greater than right. Recommend radiographic and clinical follow up to resolution. If findings not resolve, a PET CT may be needed" Dispo: 1-2 days pending pulmonology clearance and further recs GI Prophylaxis: Not indicated VTE Prophylaxis: Sub-Q Enoxaparin Resuscitation Status: CPR: Attempt Resuscitation Mitchell Mueller September 17, 2016 12:31
[2016-09-17 13:17] VITALS: BP 163/84; PULSE 85; RESP 16; O2SAT 93
[2016-09-17 13:18] VITALS: PULSE 85; RESP 20; O2SAT 93
--- NOTE | 2016-09-17 16:37 | PCM.PNMED ---
Subjective Date of Service September 17, 2016 Subjective 81 yo former smoker with h/o "asthma" admitted with one week of cough, SOB. Hypoxemic on RA in our ED. Reported history of 6 similar episodes over the last 4 years. Feels improved. Off supplemental O2. Denies SOB, fever, chills, chest pain Anticipates discharge tomorrow Exam Vital Signs Vital Sign - Last Date Time Temp Pulse Resp B/P Pulse Ox O2 Delivery O2 Flow Rate FiO2 09/17/16 14:43 Room Air 09/17/16 13:18 85 20 93 09/17/16 13:17 36.8 163/84 09/17/16 07:17 1.00 Intake and Output 09/16/16 09/16/16 09/17/16 Cumulative From/Thru 15:00 23:00 07:00 09/13/16 18:05 - 09/17/16 06:43 Intake Total 1261 ml 3069 ml 1066 ml 50301 ml Output Total 650 ml 9960 ml Balance 1261 ml 3069 ml 416 ml 558 ml Intake Oral 2150 ml 150 ml 4136 ml IV Total 1261 ml 919 ml 916 ml 6382 ml Output Urine Total 650 ml 9610 ml Urine/Stool Mix 350 ml # Voids 3 1 10 # Bowel Movements 2 2 1 7 Exam Pale elderly woman, Speaks in full sentences. Appears comfortable. Lungs Decreased BS, scattered crackles at bases, Wheezes anteriorly CV Distant HTs, no m/g/r Ext Tr LE edema IVs and Medications Medications Reviewed: Medications were reviewed in detail Lab and Diagnostics IgM slightly elevated, IgA and IgG normal Urine legionella Ag and pneumococcal Ag both neg Sputum culture and AFB pending Result Diagram: 09/16/16 0600 09/17/16 0542 X-Rays, CTs and MRIs Date of Service: 09/13/16 1832 PROCEDURE: X-RAY CHEST, TWO VIEWS ([id number]) INDICATIONS: dyspnea IMPRESSION: Pleural effusions with pulmonary congestion. Superimposed infection particularly in the left lower lobe cannot be excluded. Recommend a followup chest radiograph in 4-6 weeks to verify resolution. Dictated by: Yoseph Cochran M.D. on 09/13/2016 at 20:06 Approved by: Yoseph Cochran M.D. on 09/13/2016 at 20:07 Date of Service: 09/13/162034 PROCEDURE: CT ANGIO CHEST PULMONARY EMBOLISM ([id number]) INDICATIONS: pleural effusion, dyspnea,hx of clot IMPRESSION: 1. No acute pulmonary emboli. 2. Infectious appearing pulmonary opacities bilaterally greatest in the left lower lobe. Likely reactive mediastinal lymphadenopathy and pleural effusions left greater than right. Recommend radiographic and clinical follow up to resolution. If findings not resolve, a PET CT may be needed. Dictated by: Yoseph Cochran M.D. on 09/13/2016 at 20:57 Approved by: Yoseph Cochran M.D. on 09/13/2016 at 21:07 Assessment & Plan IMP Acute hypoxemic respiratory failure in woman with history of 6 similar previous episodes. The multiple lung zones involved on her CT and appearance c/w inflammatory disease has a long differential which is discussed in our original consult note. In brief, she may have atypical organisms (LITTLE, fungi), PARTNER INTEGRATION PLANNER, alveolar hemorrhage, pulmonary toxicity from meds (?hydralazine), aspiration, or a multicentric malignancy. The acute process is confounded by the fact that she likely has some chronic underlying lung disease which in the past has been labelled "asthma" She is clinically improved and can be discharge on oral steroids eg 40 mg/day x 5 days and oral antibiotics, eg azithro 250/day x 3 more days along with inhaled bronchodilators. Her sputum studies for culture and AFB stain and LAZ screen will need to be followed up after her discharge and, most importantly, she will need a followup CXR in 4-8 weeks to confirm radiographic resolution of her bilateral infiltrates. Because she will likely be back home in the [facility] area, she will resume care with the [facility] system down there but she should be provided with a copy of her records from this hospitalization for her physicians back in [place]. Copies of her consultation, CXR, CT and lab results will help with her receiving appropriate post-discharge followup. Pulmonary Consult will sign off but would be glad to become reinvolved if we can help. GI Prophylaxis: Not indicated VTE Prophylaxis: Sub-Q Enoxaparin Resuscitation Status: CPR: Attempt Resuscitation Siddhartha Payan MD September 17, 2016 16:37
[2016-09-17 19:55] VITALS: BP 201/111; PULSE 74; RESP 16; O2SAT 96
[2016-09-17] MEDS: cefTRIAXone Inj 2,000 MG in Dextrose 5% Minibag Plus 50 ML IV SCH (20:43)
[2016-09-17 22:00] VITALS: PULSE 94; RESP 18; O2SAT 93
[2016-09-18] MEDS: Albuterol 2.5 mg/3 mL Inhalation Solution NEB SCH ×2 (01:18→07:32)
[2016-09-18 04:54] VITALS: BP 169/79; PULSE 90; RESP 16; O2SAT 96
--- NOTE | 2016-09-18 05:37 | NUR ---
Uneventful Night: Pt rested through the night with no complaints of pain or discomfort. Denies n/v. SOB with exertion. Non-slip socks and SBA for safety. Bed locked, low postion. Call light within reach, using appropriately. Frequent rounding in place. Pleasant and cooperative with care.
[2016-09-18] MEDS: 0.9% Sodium Chloride 1,000 ML IV SCH (05:53)
[2016-09-18 07:33] VITALS: PULSE 75; RESP 20; O2SAT 93
[2016-09-18] MEDS: Insulin LISPRO Low-Dose Scale SUBQ SCH (07:47)
[2016-09-18] MEDS: predniSONE 20 mg Tablet PO SCH (07:57)
[2016-09-18] MEDS: guaiFENesin 600 mg ER12 Tablet PO SCH (07:57)
[2016-09-18] MEDS: Lisinopril 40 Tablet PO SCH (07:58)
--- NOTE | 2016-09-18 10:02 | NUR ---
Social Work: Discharge Data: Pt is on day 5 of hospitalization. EMR reviewed. PT recommending SNF at this time, pt not willing to go to SNF. TOOL AND DIE ENGINEER discussed d/c plan with MD. MD states pt will need to follow up with her PCP in [place] regarding HH if she wants it. Pt states she will go home with her daughter then go back to [place]. No further d/c planning needs. TOOL AND DIE ENGINEER will continue to follow if needs arise. Assessment: Pt who is independent at baseline. Plan: Pt will d/c home via POV with daughter likely today per MD in rounds. Pt to follow up with PCP regarding HH if needed. No further d/c planning needs. TOOL AND DIE ENGINEER will continue to follow if needs arise. KAREN Rodrigues
[2016-09-18] MEDS ORDERED: PRE20 PO (10:06)
[2016-09-18] MEDS ORDERED: ALBU8.5H2 INHALATION (10:06)
[2016-09-18] MEDS ORDERED: ZIT250 PO (10:06)
--- NOTE | 2016-09-18 10:15 | PCM.DIMED ---
Discharge Instructions Date of Service September 18, 2016 Dates of Hospitalization September 13, 2016 at 21:43 Discharge Diagnosis Discharge Diagnosis # Acute hypoxic respiratory failure of unclear exact etiology but suspected due to pneumonia and possible COPD exacerbation, present on admission. Improved # Possible underlying COPD and possible acute exacerbation. - likely some chronic underlying lung disease which in the past has been labelled "asthma" # Acute community-acquired pneumonia, present on admission. # Acute Hyponatremia, present on admission. Resolved with hydration. # Chronic Hypertension. stable # Hypothyroidism # Hyperlipidemia # Urinary incontinence # CTA on 09/13/16: " mediastinal lymphadenopathy and pleural effusions left greater than right. Recommend radiographic and clinical follow up to resolution. If findings not resolve, a PET CT may be needed" Diet Discharge Diet: Low fat, Low Sodium, Heart Healthy Call your provider Call your provider for: Fever or Chills, Shortness of breath, Bleeding, Chest pain, Excessive diarrhea Patient Instructions Patient Instructions Seek immediate medical attention if any new or worsening signs or symptoms occur. Follow-up plan 1. Followup with your primary care provider within one week. - sputum studies for culture and AFB stain and LAZ screen will need to be followed up after discharge and, most importantly, will need a followup chest x- ray in 4-8 weeks to confirm radiographic resolution of bilateral infiltrates. - ensure to take a copy of records from this hospitalization for her physicians back in [place]. Copies of pulmonology consult, imaging studies and lab results will help care providers in [place] with providing appropriate post- discharge followup. Mitchell Mueller September 18, 2016 10:15
--- NOTE | 2016-09-18 11:24 | NUR ---
Discharge Reviewed d/c instructions with pt and family in room including care notes and new prescriptions, pt signed and given originals, copies to chart. IV d/c intact, no tele. VS stable at d/c. All belongings packed and taken with pt upon departure. Pt taken off unit via WC by video games storywriter to daughter car who will drive pt home.
--- NOTE | 2016-09-18 14:51 | PCM.DC.MED ---
Discharge Summary Date of Service September 18, 2016 Dates of Hospitalization Date of Hospital Admission September 13, 2016 at 21:43 Date of Discharge: September 18, 2016 Providers: Admitting Physician: Jeronimo Hankins MD Primary Care Physician: Other,Physician Attending Physician: Jeronimo Hankins MD Diagnosis at Time of Discharge Diagnosis at Time of Discharge # Acute hypoxic respiratory failure of unclear exact etiology but suspected due to pneumonia and possible COPD exacerbation, present on admission. Improved # Possible underlying COPD and possible acute exacerbation. - likely some chronic underlying lung disease which in the past has been labelled "asthma" # Acute community-acquired pneumonia, present on admission. # Acute Hyponatremia, present on admission. Resolved with hydration. # Chronic Hypertension. stable # Hypothyroidism # Hyperlipidemia # Urinary incontinence # CTA on 09/13/16: " mediastinal lymphadenopathy and pleural effusions left greater than right. Recommend radiographic and clinical follow up to resolution. If findings not resolve, a PET CT may be needed" Consultations 1. Pulmonology (Dr. Beck) Procedures XRay, CTs & MRIs Date of Service: 09/13/16 1832 PROCEDURE: X-RAY CHEST, TWO VIEWS ([id number]) IMPRESSION: Pleural effusions with pulmonary congestion. Superimposed infection particularly in the left lower lobe cannot be excluded. Recommend a followup chest radiograph in 4-6 weeks to verify resolution. Dictated by: Yoseph Cochran M.D. on 09/13/2016 at 20:06 Approved by: oYseph Cochran M.D. on 09/13/2016 at 20:07 Date of Service: 09/13/162034 PROCEDURE: CT ANGIO CHEST PULMONARY EMBOLISM ([id number]) IMPRESSION: 1. No acute pulmonary emboli. 2. Infectious appearing pulmonary opacities bilaterally greatest in the left lower lobe. Likely reactive mediastinal lymphadenopathy and pleural effusions left greater than right. Recommend radiographic and clinical follow up to resolution. If findings not resolve, a PET CT may be needed. Dictated by: Yoseph Cochran M.D. on 09/13/2016 at 20:57 Approved by: Yoseph Cochran M.D. on 09/13/2016 at 21:07 Brief History As noted in H&P by Dr. Kasper: Patient is a 81 y/o female with asthma, hypertension and hyperlipidemia seen by urgent care transferred to the ED complaining of worsening non-productive cough , onset 9 days ago. Associated symptoms include cough, dyspnea, headache, nasal congestion and wheezing. Patient states she has not had any appetite for the last week. She denies fever, chest pain, otalgia or sore throat. Patient reports of having pneumonia in May and had lesion on left lung. Patient denies history of dysuria, allergies, sick contacts or exposure to smoke. Patient is currently visiting her daughter from [place]. Denies any recent hospitalizations, or antibiotics use. Patient is not on oxygen at baseline. In the ED vitals T 36.6, P 84, RR 18, BP 141/76, oxygen 88% on RA. Labs significant for WBC 13.2, sodium 127, chloride 84, bicarbonate 31, glucose 164. Pro-calcitonin 0.10. D-dimer is 1.54. Lactic acid 1.2. Troponin negative, BNP in a 303.7. CXR showed "Pleural effusions with pulmonary congestion. Superimposed infection particularly in the left lower lobe cannot be excluded." CTA negative for PE, confirming CXR findings. Hospital Course # Acute hypoxic respiratory failure suspected due to pneumonia, present on admission. Improved - Pulmonology consulted. - unclear exact etiology but suspected due to pneumonia and possible COPD exacerbation, present on admission. - likely some chronic underlying lung disease which in the past has been labelled "asthma" - Treated with couple of days of IV Solu-Medrol and will discharge with 4 more days of PO prednisone per pulmonology recs - Followup pending serologies and cultures deferred to her PCP as outpatient. # Suspected acute community-acquired pneumonia, present on admission. Clinically resolved. - CXR showed "Pleural effusions with pulmonary congestion. Superimposed infection particularly in the left lower lobe cannot be excluded." CTA negative for PE, confirming CXR findings. - Post Ceftriaxone and Azithromycin (day 5) during this hospital. - Urine Legionella and strep, PCR viral negative - Followup pending cultures # Acute Hyponatremia, present on admission. Resolved - Suspected likely due to poor oral intake for the past week although SIADH also possible # Chronic Hypertension. stable - continue home meds atenolol. Lisinopril, hydralazine # Hypothyroidism - continue home med levothyroxine # Hyperlipidemia - continue home med lovastatin # Urinary incontinence - continue oxybutynin # CTA on 09/13: " mediastinal lymphadenopathy and pleural effusions left greater than right. Recommend radiographic and clinical follow up to resolution. If findings not resolve, a PET CT may be needed" Exam Vital Signs (Last) Date Time Temp Pulse Resp B/P Pulse Ox O2 Delivery O2 Flow Rate FiO2 09/18/16 07:33 75 20 93 Room Air 09/18/16 04:54 36.2 169/79 09/17/16 19:55 1.50 Exam General: Alert, Cooperative, No Acute Distress Head: Normal Eyes: Scleral Anicteric Nose: Mucous Membr Moist/[place] Mouth: Mucous Membr Moist/[place] Neck: Supple Chest & Lungs: Chest Wall Normal, Clear to auscultation bilaterally Cardiovascular: Regular Rate/Rhythm Abdomen: Non-tender, Non-distended, Normoactive bowel tones, Soft Extremities: No cyanosis/clubbing/edema bilat Neurological: Grossly Neurologically Intact, Normal Speech Test 09/13/16 19:05 09/13/16 21:55 09/14/16 05:30 09/15/16 05:45 D-Dimer 1.54mg/L FEU (<0.50) Lactic Acid Level 1.2mmol/L (0.4-2.0) Total Bilirubin 0.4mg/dL (0.0-1.2) Aspartate Amino Transf (AST/SGOT) 16U/L (0-50) Alanine Aminotransferase (ALT/SGPT) 10U/L (0-32) Alkaline Phosphatase 62U/L (25-165) Troponin T < 0.010ug/L (0.0-0.011) Pro-B-Type Natriuretic Peptide 303.7pg/mL (0-738) Total Protein 7.6g/dL (6.4-8.4) Albumin 3.2g/dL (3.4-5.0) Hold [place] Top Tube Received (Received) Urine Color Yellow (YELLOW) Urine Appearance Clear (CLEAR,HAZY) Urine pH 6.0 (5.0-8.0) Urine Specific [place] 1.017 (1.003-1.035) Urine Protein Negativemg/dL (NEG,TRACE) Urine Glucose (UA) Negativemg/dL (NEGATIVE) Urine Ketones Negativemg/dL (NEGATIVE) Urine Occult Blood Negative (NEGATIVE) Urine Nitrite Negative (NEGATIVE) Urine Bilirubin Negative (NEGATIVE) Urine Urobilinogen Normalmg/dL (NORMAL) Urine Leukocyte Esterase Negative (NEGATIVE) Urine RBC 0-2/hpf (0-2) Urine WBC 0-5/hpf (0-5) Urine Epithelial Cells Occasional/hpf (NONE-MOD) Urine Crystals None seen (NONE SEEN) Urine Bacteria None/hpf (NONE-FEW) Urine Hyaline Casts None/lpf (NONE) Urine Granular Casts None seen (NONE SEEN) Urine Waxy Casts None seen (NONE SEEN) Urine Red Blood Cell Casts None seen (NONE SEEN) Urine White Blood Cell Casts None seen (NONE SEEN) Urine Mucus None seen (None Seen) Urine Trichomonas None seen (NONE SEEN) Urine Yeast None (NONE SEEN) Urine Culture Reflexed Not indicated Urine Legionella pneumophilia Ag Negative (Negative) Hemoglobin A1c 6.4% (4.8-5.6) Neutrophils (%) (Auto) 74.7% (40-74) Lymphocytes (%) (Auto) 10.6% (14-46) Monocytes (%) (Auto) 13.7% (4-12) Eosinophils (%) (Auto) 0.1% (0-5) Basophils (%) (Auto) 0.1% (0-3) Test 09/16/16 06:00 09/17/16 05:42 White Blood Count 9.1th/mm3 (3.8-10.1) Red Blood Count 4.08mil/mm3 (3.90-5.20) Hemoglobin 12.0g/dL (12.0-15.6) Hematocrit 35.5% (35.0-46.0) Mean Corpuscular Volume 87.0fL (81-100) Mean Corpuscular Hemoglobin 29.4pg (27.0-35.0) Mean Corpuscular Hemoglobin Concent 33.8% (32.0-37.0) Red Cell Distribution Width 13.2% (12.3-15.4) Platelet Count 449bil/L (150-400) Serum Immunoglobulin A 192mg/dL (64-422) Serum Immunoglobulin G 994mg/dL (700-1600) Procalcitonin 0.07ng/mL (0.00-0.08) Immunoglobulin M 394mg/dL (26-217) Sodium Level 134mEq/L (134-144) Potassium Level 4.6mEq/L (3.5-5.2) Chloride Level 94mEq/L (97-108) Carbon Dioxide Level 28mmol/L (18-29) Blood Urea Nitrogen 13mg/dL (8-27) Creatinine 0.38mg/dL (0.57-1.00) Estimat Glomerular Filtration Rate 232mL/min (>59) Glucose Level 269mg/dL (60-99) Calcium Level 9.2mg/dL (8.5-10.1) Discharge Medications Discharge Medications Atenolol (Atenolol) 25 Mg Tablet 25 MG PO DAILY (Reported) Azithromycin (Zithromax) 250 Mg Tablet 250 MG PO DAILY Prescribed by: MITCHELL AVILES MD Cyanocobalamin (Vitamin B12) 500 Mcg Tablet 500 MCG PO DAILY (Reported) Ferrous Gluconate (Ferrous Gluconate) 240 Mg Tablet 240 MG PO HS (Reported) Hydralazine (Hydralazine) 50 Mg Tablet 50 MG PO BID (Reported) Levothyroxine (Levothyroxine) 75 Mcg Tablet 75 MCG PO DAILY (Reported) Lisinopril (Lisinopril) 40 Mg Tablet 40 MG PO DAILY (Reported) Lovastatin (Lovastatin) 40 Mg Tablet 80 MG PO HS (Reported) Multivits-Min/FA/Lycopene/Lut (Centrum Silver Tablet) 1 Each Tablet 1 EACH PO DAILY (Reported) Oxybutynin Chloride (Oxybutynin Chloride) 5 Mg Tablet 5 MG PO 1-2x daily ( Reported) Prednisone (PredniSONE) 20 Mg Tablet 40 MG PO DAILY Prescribed by: MITCHELL AVILES MD As needed Albuterol HFA (Proair HFA) 8.5 Gm Hfa.aer.ad 2 PUFFS INHALATION Q4H PRN PRN For Wheezing Prescribed by: MITCHELL AVILES MD Followup Plan Disposition: Home Follow-up plan 1. Followup with your primary care provider within one week. - sputum studies for culture and AFB stain and LAZ screen will need to be followed up after discharge and, most importantly, will need a followup chest x- ray in 4-8 weeks to confirm radiographic resolution of bilateral infiltrates. - ensure to take a copy of records from this hospitalization for her physicians back in [place]. Copies of pulmonology consult, imaging studies and lab results will help care providers in [place] with providing appropriate post- discharge followup. Discharge Diet: Low fat, Low Sodium, Heart Healthy Patient Instructions Seek immediate medical attention if any new or worsening signs or symptoms occur. Patient and her daughter express clear verbal understanding of mentioned plans and followup and agree with it. Time spent 35 min Mitchell Aviles September 18, 2016 14:51
== END 2016-09-18 11:15 | disposition home or self-care (01) | DRG 189 ==
LOC: SED 18:03 → MPC 21:43
PROVIDERS: ADMIT Hospitalist; ATTEND Hospitalist
DX: J96.01 Acute respiratory failure with hypoxia (principal); J18.9 Pneumonia, unspecified organism; E87.1 Hypo-osmolality and hyponatremia; J44.1 Chronic obstructive pulmonary disease with (acute) exacerbation; J45.909 Unspecified asthma, uncomplicated; I10 Essential (primary) hypertension; E78.5 Hyperlipidemia, unspecified; E03.9 Hypothyroidism, unspecified; N39.3 Stress incontinence (female) (male); Z87.891 Personal history of nicotine dependence